=== PATIENT | male | born 1980 | race Caucasian/White ===

== ENCOUNTER 2017-01-10 09:21 | Emergency (ER) | payer BC ==
--- NOTE | 2017-01-10 09:36 | EDM.PDOC ---
ED HPI GENERAL MEDICAL PROBLEM - General Chief Complaint: Skin Complaint Stated Complaint: BUMP ON BUTTOCKS Time Seen by Provider: 01/10/17 09:36 Source of Information: Reports: Patient - History of Present Illness INITIAL COMMENTS - FREE TEXT/NARRATIVE: HISTORY AND PHYSICAL: History of present illness: []Patient presents with perirectal cellulitis, he states over the last week he has had pain and tenderness near his rectum, last night his removed several ingrown hairs from an area with a needle at approximately 8 o'clock position from the rectum all patient is lying on his abdomen he states at that time some serious E drainage did come out of the lesion and the lesion became much smaller currently at his belt size of a quarter flat indurated no fluctuance or drainage for culture. He does have an area of tenderness there is no fluctuance associated at this time, lesion is certainly not pointed no fever nausea vomiting chills sweats lesion is nonpainful at rest some discomfort while he walks Review of systems: As per history of present illness and below otherwise all systems reviewed and negative. Past medical history: As per history of present illness and as reviewed below otherwise noncontributory. Surgical history: As per history of present illness and as reviewed below otherwise noncontributory. Social history: No reported history of drug or alcohol abuse. Family history: As per history of present illness and as reviewed below otherwise noncontributory. Physical exam: HEENT: Atraumatic, normocephalic, pupils reactive, negative for conjunctival pallor or scleral icterus, mucous membranes moist, throat clear, neck supple, nontender, trachea midline. Lungs: Clear to auscultation, breath sounds equal bilaterally, chest nontender. Heart: S1S2, regular, negative for clicks, rubs, or JVD. Abdomen: Soft, nondistended, nontender. Negative for masses or hepatosplenomegaly. Negative for costovertebral tenderness. Pelvis: Stable nontender. Genitourinary: Deferred. Rectal: Deferred. Extremities: Atraumatic, negative for cords or calf pain. Neurovascular unremarkable. Neuro: Awake, alert, oriented. Cranial nerves II through XII unremarkable. Cerebellum unremarkable. Motor and sensory unremarkable throughout. Exam nonfocal. Diagnostics: []No drainage for culture Therapeutics: []Cipro 500 mg by mouth twice a day #20 no refill Flagyl 500 mg by mouth 3 times a day #30 no refill Warm pack Return if symptoms persist or worsen Follow-up with general surgery Thursday referral provided Impression: []Perirectal cellulitis secondary to ingrown hair/possible early abscess formation Definitive disposition and diagnosis as appropriate pending reevaluation and review of above. Right Sacral Pain Score (Numeric/FACES): 2 - Related Data Allergies Allergy/AdvReac Type Severity Reaction Status Date / Time No Known Allergies Allergy Verified 01/10/17 09:37 Home Meds: Home Meds . [No Known Home Meds] 01/10/17 [History] ED ROS GENERAL - Review of Systems Review Of Systems: ROS reveals no pertinent complaints other than HPI. ED EXAM, SKIN/RASH Exam: See Below Course - Vital Signs Last Recorded V/S: Last Vital Signs Temp 35.8 C 01/10/17 09:33 Pulse 78 01/10/17 09:33 Resp 19 01/10/17 09:33 BP 146/97 H 01/10/17 09:33 Pulse Ox 97 01/10/17 09:33 Departure - Departure Time of Disposition: 09:56 Disposition: Home, Self-Care 01 Condition: Good Clinical Impression: Cellulitis and abscess of buttock - Discharge Information Forms: ED Department Discharge Additional Instructions: Medication as prescribed Warm pack as discussed 2-3 times daily Or take sitz baths in warm water with Epsom salts Follow-up with general surgery on Thursday ER referral provided Return to ER if symptoms persist or worsen in the interim [facility] - General Surgery [address], [address] [place] [address] The following information is given to patients seen in the emergency department who are being discharged to home. This information is to outline your options for follow-up care. We provide all patients seen in our emergency department with a follow-up referral. The need for follow-up, as well as the timing and circumstances, are variable depending upon the specifics of your emergency department visit. If you don't have a primary care physician on staff, we will provide you with a referral. We always advise you to contact your personal physician following an emergency department visit to inform them of the circumstance of the visit and for follow-up with them and/or the need for any referrals to a consulting specialist. The emergency department will also refer you to a specialist when appropriate. This referral assures that you have the opportunity for follow-up care with a specialist. All of these measure are taken in an effort to provide you with optimal care, which includes your follow-up. Under all circumstances we always encourage you to contact your private physician who remains a resource for coordinating your care. When calling for follow-up care, please make the office aware that this follow-up is from your recent emergency room visit. If for any reason you are refused follow-up, please contact the [facility] emergency department at and asked to speak to the emergency department charge nurse.
== END 2017-01-10 10:04 | disposition home or self-care (01) ==
LOC: MW.ED 09:21
CPT/HCPCS: 99282